=== PATIENT | female | born 1985 | race Caucasian/White ===

== ENCOUNTER 2022-08-29 08:22 | Emergency (ER) | payer OTHER, SELFPAY ==
--- NOTE | 2022-08-29 08:26 | ED.URI ---
HPI - URI/Sore Throat General Chief Complaint: Upper Respiratory Infection Stated Complaint: Sore Throat Time Seen by Provider: 08/29/22 08:46 Source: patient and RN notes reviewed Mode of arrival: ambulatory Limitations: no limitations History of Present Illness HPI Narrative: 37-year-old female presents with concern for sore throat, stuffy nose, dry cough. She reports symptoms started yesterday. She reports feeling of swollen lymph nodes and difficulty swallowing. She reports diarrhea yesterday. She denies sick contacts MD elicited complaint: sore throat Related Data Home Medications Medication Instructions Recorded Confirmed citalopram 20 mg tablet 20 mg PO DAILY 08/29/22 08/29/22 levothyroxine 50 mcg tablet 50 mcg PO EVERY OTHER DAY 08/29/22 08/29/22 (Unithroid) Allergies Allergy/AdvReac Type Severity Reaction Status Date / Time amoxicillin AdvReac Intermediate Gastrointestinal Verified 08/29/22 08:50 Upset wheat AdvReac Intermediate Gastrointestinal Verified 08/29/22 08:51 Upset Review of Systems Review of Systems: CONSTITUTIONAL: Denies malaise, chills, sweats, or fever. EYES: Denies visual changes, redness, or discharge. ENT: Reports rhinorrhea, sinus pain, otalgia. Reports stuffy nose and sore throat. CARDIOVASCULAR: Denies chest pain, palpitations, or edema. RESPIRATORY: Reports dry cough. Denies dyspnea. GASTROINTESTINAL: Denies abdominal pain, nausea, vomiting. Reports diarrhea SKIN: Denies rash or itching. MUSCULOSKELETAL: Denies myalgia. NEUROLOGIC: Denies headache. All systems reviewed & are unremarkable except as noted in HPI and below PMFSH Past Medical History Medical History (Updated 08/29/22 @ 08:58 by Ana M De Santiago NP) Acne Anxiety Celiac disease Depression Hypothyroidism Moderate left ankle sprain Vitamin B12 deficiency Surgical History Surgical History (Updated 05/02/22 @ 09:18 by Chelsie Woods PA-C) History of tonsillectomy Family History Family History Father Cerebrovascular accident Grandparent Family history of malignant neoplasm of breast Family history of type 2 diabetes mellitus Other Diabetes mellitus Family history of cardiovascular disease Hypertension Social History Social History (Updated 05/02/22 @ 09:09 by Cindi Putnam MA) Smoking status: Never smoker Alcohol intake: current Alcohol use details: social Substance use: never Gender identity (if verbalized by the patient): Female Comments At time of signature, agree with nursing past medical, surgical, social and family history. There is no relevant family history pertinent to the presenting complaint Exam Narrative: GENERAL: Well-appearing, well-nourished, and in no acute distress. HEAD: Normocephalic EYES: PERRLA, conjunctivae clear ENT: Nares clear. Mucous membranes moist. TM pearly patel with dull light reflex bilaterally; no tragal tenderness. Oropharynx erythematous without lesions. Tonsils not enlarged and without exudate, no drooling, no hoarseness, no trismus, uvula midline. NECK: Supple. No lymphadenopathy CHEST: Clear to auscultation, breath sounds equal. No wheezing, rhonchi, rales, or stridor. No respiratory distress, speaks in full sentences. HEART: Regular rate and rhythm. No murmur heard. SKIN: Warm, dry, no rash. NEURO: Alert and oriented x3. PSYCH: Normal mood and affect Course Course Emergency Course: Patient is aware of diagnosis, understands and agrees to treatment plan. Anticipatory guidance given. Patient agrees to follow-up as directed and is aware of reasons to seek care at the emergency department. Portions of this record may have been created with voice recognition software Level of Care: Express Care Visit Vital Signs Vital signs: Reviewed. MDM - URI/Sore Throat MDM Narrative Medical decision making narrative: Differential diagnosis considered: Winkler virus, st
[2022-08-29 08:38] VITALS: BP 143/86; PULSE 94; RESP 16; TEMP 36.3; O2SAT 100
== END 2022-08-29 09:00 | disposition home or self-care (01) ==
PROVIDERS: Emergency Provider Nurse Practitioner; PCP Physician Assistant Medical
DX: J02.0 Streptococcal pharyngitis (principal); E03.9 Hypothyroidism, unspecified; F41.9 Anxiety disorder, unspecified; F32.A Depression, unspecified; K90.0 Celiac disease
CPT/HCPCS: 87880; 99213; G0463

== ENCOUNTER 2022-08-31 17:27 | Emergency (ER) | payer OTHER, SELFPAY ==
[2022-08-31 17:39] VITALS: BP 144/91; PULSE 76; RESP 18; TEMP 36.5; O2SAT 99
--- NOTE | 2022-08-31 18:10 | ED.URI ---
HPI - URI/Sore Throat General Chief Complaint: Upper Respiratory Infection Stated Complaint: sorethroat Time Seen by Provider: 08/31/22 18:05 History of Present Illness HPI Narrative: 37-year-old female presented for complaint of sore throat, after diagnosis of strep pharyngitis 2 days ago. She was prescribed cefdinir but states her symptoms are worsening. Endorses swollen painful lymph nodes and difficulty swallowing due to the pain. She denies lip, throat or tongue swelling, wheezing or shortness of breath. She denies fevers or chills. She endorses mild sinus congestion. She is taking Tylenol and ibuprofen for pain. She states she cannot tolerate amoxicillin due to GI upset, and states azithromycin is like eating candy and does nothing Related Data Home Medications Medication Instructions Recorded Confirmed citalopram 20 mg tablet 20 mg PO DAILY 08/29/22 08/31/22 levothyroxine 50 mcg tablet 50 mcg PO EVERY OTHER DAY 08/29/22 08/31/22 (Unithroid) Allergies Allergy/AdvReac Type Severity Reaction Status Date / Time amoxicillin AdvReac Intermediate Gastrointestinal Verified 08/31/22 17:47 Upset wheat AdvReac Intermediate Gastrointestinal Verified 08/31/22 17:47 Upset Review of Systems Review of Systems: per HPI [facility] Past Medical History Medical History Acne Anxiety Celiac disease Depression Hypothyroidism Moderate left ankle sprain Vitamin B12 deficiency Surgical History Surgical History History of tonsillectomy Family History Family History Father Cerebrovascular accident Grandparent Family history of malignant neoplasm of breast Family history of type 2 diabetes mellitus Other Diabetes mellitus Family history of cardiovascular disease Hypertension Social History Social History Smoking status: Never smoker Alcohol intake: current Alcohol use details: social Substance use: never Gender identity (if verbalized by the patient): Female Exam Narrative: GENERAL: Ill-appearing, no acute distress. EYES: conjunctivae clear ENT: Mucous membranes moist. TMs pearly patel with normal light reflex bilaterally; no tragal tenderness. Oropharynx erythematous with exudate. Tonsils absent. No drooling, no hoarseness, no trismus, uvula midline. No tripod positioning, hot potato voice, or soft palate swelling. NECK: Supple. Bilateral anterior cervical lymphadenopathy CHEST: Clear to auscultation, breath sounds equal. HEART: Regular rate and rhythm. No murmur heard. SKIN: Warm, dry, no rash. NEURO: Alert and oriented x3. Course Course Emergency Course: Patient is aware of diagnosis, understands and agrees to treatment plan. Anticipatory guidance given. Patient agrees to follow-up as directed and is aware of reasons to seek care at the emergency department. Portions of this record may have been created with voice recognition software Level of Care: Express Care Visit Vital Signs Vital signs: Vital Signs Temperature 97.7 F 08/31/22 17:39 Pulse Rate 76 08/31/22 17:39 Respiratory Rate 18 08/31/22 17:39 Blood Pressure 144/91 H 08/31/22 17:39 Pulse Oximetry 99 08/31/22 17:39 Oxygen Delivery Room Air 08/31/22 17:39 Temperature 97.7 F 08/31/22 17:39 Pulse Rate 76 08/31/22 17:39 Respiratory Rate 18 08/31/22 17:39 Blood Pressure 144/91 H 08/31/22 17:39 Pulse Oximetry 99 08/31/22 17:39 Oxygen Delivery Room Air 08/31/22 17:39 MDM - URI/Sore Throat MDM Narrative Medical decision making narrative: Will change antibiotics, discussed amox is first choice but she declines due to GI symptoms. Advise supportive treatments. Patient is appropriate for outpatient treatment and follow-up. Differential
== END 2022-08-31 18:21 | disposition home or self-care (01) ==
PROVIDERS: Emergency Provider Nurse Practitioner Family; PCP Physician Assistant Medical
DX: J02.9 Acute pharyngitis, unspecified (principal); F41.9 Anxiety disorder, unspecified; K90.0 Celiac disease; F32.A Depression, unspecified; E03.9 Hypothyroidism, unspecified
CPT/HCPCS: 99213; G0463

== ENCOUNTER 2024-01-16 15:24 | Outpatient (CLI) | payer OTHER, SELFPAY ==
--- NOTE | ~2024-01-16 | MM_ITS ---
EXAMINATION: MM screening kalli BI w carmen HISTORY: Screening TECHNIQUE: Craniocaudal and mediolateral oblique 3-D tomosynthesis images were obtained and synthetic 2-D images were generated. CAD analysis was submitted and interpreted. COMPARISON: No prior mammogram is available for comparison at this institution. BREAST PARENCHYMAL COMPOSITION: There are scattered areas of fibroglandular density. FINDINGS: There is no evidence of suspicious mass, calcification, or architectural distortion to sugg est malignancy in either breast. There has been no suspicious interval change. IMPRESSION: 1. No mammographic evidence of malignancy. 2. Recommend routine screening mammography in one year. Reviewed, dictated and finalized at location A.
== END 2024-01-16 15:25 ==
LOC: MICIMG 15:24
PROVIDERS: PCP Obstetrics & Gynecology Gynecologic Oncology; Visit Provider Obstetrics & Gynecology Gynecologic Oncology
DX: Z12.31 Encounter for screening mammogram for malignant neoplasm of breast (principal)
CPT/HCPCS: 77063; 77067

== ENCOUNTER 2024-01-30 06:19 | Day surgery (SDC) | payer OTHER, SELFPAY ==
[2024-01-15 14:26] VITALS: BMI 37.0
[2024-01-21 13:09] VITALS: BMI 36.6
[2024-01-30 07:04] VITALS: BMI 36.1
--- NOTE | 2024-01-30 07:13 | WPDHPUPDATE1 ---
History and Physical Update Update Date/Time: 01/30/24 07:13 History and Physical has been reviewed, including an updated exam of the patient. There are NO changes in the patient's condition. Risks, benefits, and alternatives have been discussed and questions answered. Patient agrees to proceed with procedure.
[2024-01-30] MEDS: LACTATED RINGERS 1,000 ML 150 ML IV CONT (07:36)
--- NOTE | 2024-01-30 07:39 | WPDANESEPPF ---
Anes - Initial Pre Proc Eval Procedure: Operation Date: 01/30/24 08:00 Proposed Procedures p Esophagogastroduodenoscopy - Romero Waterman MD s Screening Colonoscopy - Romero Waterman MD Date/Time: 01/30/24 07:39 Surgeon: Romero Waterman MD Pre Op Diagnosis: Eosinophilic Esophagitis, Neoplasm Screening Patient Data Age: 39 Gender: F Height: 1.65 m Weight: 98.4 kg Allergies Allergy/AdvReac Type Severity Reaction Status Date / Time amoxicillin AdvReac Intermediate Gastrointestinal Verified 01/30/24 07:00 Upset wheat AdvReac Intermediate Gastrointestinal Verified 01/30/24 07:00 Upset Home Medications Medication Instructions Recorded Confirmed Type levonorgestrel 17.5 mcg/24 hr (up 1 device intrauterine ONCE 09/09/23 01/30/24 History to 5 yrs) 19.5mg intrauterine device (Kyleena) dicyclomine 10 mg capsule 10 mg PO QID #120 caps 01/14/24 01/30/24 Rx rifaximin 550 mg tablet (Xifaxan) 550 mg PO TID #42 tabs 01/14/24 01/30/24 Rx ascorbic acid (vitamin C) 500 mg 500 mg PO DAILY 01/22/24 01/30/24 History tablet biotin 10,000 mcg capsule 10,000 mcg PO DAILY 01/22/24 01/30/24 History cholecalciferol (vitamin D3) 25 25 mcg PO DAILY 01/22/24 01/30/24 History mcg (1,000 unit) tablet (Vitamin D3) mecobalamin (vitamin B12) 5,000 5,000 mcg PO DAILY 01/22/24 01/30/24 History mcg chewable tablet multivitamin with minerals-folic 1 tablet PO DAILY 01/22/24 01/30/24 History acid 0.4 mg tablet nystatin 100,000 unit/gram topical 1 applic topical WEEKLY 01/22/24 01/30/24 History powder Patient hx anesthesia problems: none Family hx anesthesia problems: none Results Review: All pre-operative results and documents have been reviewed as part of the pre-operative evaluation. [facility], [facility] Past Medical History Medical History Acne Acute pain of left shoulder Anxiety Bursitis of left shoulder Celiac disease Depression Dichorionic diamniotic twin in third trimester Encounter for care and examination of mother immediately after delivery Encounter for gynecological examination (general) (routine) with abnormal findings Encounter for routine follow-up Encounter for screening for malignant neoplasm of cervix Encounter for supervision of normal first , second trimester Encounter for supervision of normal first , third trimester Encounter for supervision of normal , unspecified, first trimester First trimester bleeding Gestational hypertension w/o significant proteinuria in 3rd trimester Hypothyroidism Irregular menstruation, unspecified Migraine headache Moderate left ankle sprain Pelvic pain in female anxiety depression Right upper quadrant pain Supervision of high risk in first trimester Supervision of high risk in second trimester Supervision of high risk in third trimester Tendinitis of left rotator cuff Twin gestation with indeterminate number of placentas and number of amniotic sacs, antepartum Twin , dichorionic/diamniotic, second trimester Urinary tract infection in mother during second trimester of Uterine infection Vitamin B12 deficiency Surgical History Surgical History History of tonsillectomy Family History Family History Father Cerebrovascular accident Grandparent Family history of malignant neoplasm of breast Family history of type 2 diabetes mellitus Other Diabetes mellitus Family history of cardiovascular disease Hypertension Social History Social History Smoking status: Never smoker Alcohol intake: current Drinks per week: 8 Alcohol use details: social Substance use: never Substance use type: does not use
[2024-01-30 08:25] VITALS: BP 136/80; PULSE 72; RESP 14; O2SAT 100
[2024-01-30 08:35] VITALS: BP 120/85; PULSE 65; RESP 16; O2SAT 100
[2024-01-30 08:45] VITALS: BP 127/84; PULSE 65; RESP 20; O2SAT 100
--- NOTE | 2024-01-30 09:03 | WPDANESPN ---
Anes - Prog Note Post-Op Date/Time: 01/30/24 09:03 Cardiovascular status: normal Respiratory status: normal Airway patency: baseline Mental status: baseline Post-Op hydration status: normal Vital Signs: Last Vital Signs Pulse 65 01/30/24 08:45 Resp 20 01/30/24 08:45 BP 127/84 01/30/24 08:45 Pulse Ox 100 01/30/24 08:45 O2 Del Method Room Air 01/30/24 08:45 Pain Score (VAS): 0 I/O: Intake & Output 01/29/24 01/30/24 01/30/24 23:59 07:59 15:59 Intake Total 700 Balance 700 Patient Feedback: Patient satisfied with anesthetic care.
== END 2024-01-30 08:56 | disposition home or self-care (01) ==
PROVIDERS: PCP Physician Assistant Medical; Visit Provider Internal Medicine Gastroenterology
PROC: 0DJ08ZZ Inspection of Upper Intestinal Tract, Via Natural or Artificial Opening Endoscopic (ICD-10-PCS; CPT 43235; principal; 2024-01-30 08:00)
PROC: 0DJD8ZZ Inspection of Lower Intestinal Tract, Via Natural or Artificial Opening Endoscopic (ICD-10-PCS; CPT 45378; 2024-01-30 08:00)
DX: Z12.11 Encounter for screening for malignant neoplasm of colon (principal); R19.4 Change in bowel habit; K64.8 Other hemorrhoids; R11.0 Nausea
CPT/HCPCS: 45380; 43239

== ENCOUNTER 2024-01-30 10:48 | Outpatient (NON) | payer OTHER, SELFPAY | END 2024-01-30 10:49 | disposition home or self-care (01) | LOC: ANHLAB 01-31 10:51 | PROVIDERS: PCP Physician Assistant Medical; Visit Provider Internal Medicine Gastroenterology | DX: R10.9 Unspecified abdominal pain (principal) | CPT/HCPCS: 88305 ==

== ENCOUNTER 2025-02-16 16:53 | Emergency (ER) | payer OTHER, SELFPAY ==
[2025-02-16 16:58] VITALS: BP 114/80; PULSE 70; RESP 16; TEMP 36.5; O2SAT 99
--- NOTE | 2025-02-16 17:44 | ED_ITS ---
HPI - Ear Problem General Chief complaint: Ear Stated complaint: RT Ear Pain Time Seen by Provider: 02/16/25 17:25 Source: patient and RN notes reviewed Mode of arrival: ambulatory Limitations: no limitations History of Present Illness HPI Narrative: 40-year-old female presents Express Care complaining of right ear pain for approximately 9 days. Patient did a tele doc visit approximate diet days ago for her symptoms and was prescribed azithromycin. Patient stated did not help and she persistently has right ear pain. Patient also reports having right ear fullness. Patient denies any otorrhea, tinnitus, dizziness, nausea, vomiting, upper respiratory symptoms, cough, or any other symptoms. Patient does mention that her right jaw does click and pop at times. She denies grinding her teeth or any pain with movement of her jaw. Related Data Home Medications ?Medication ?Instructions ?Recorded ?Confirmed ?Last Taken ?Type levonorgestrel 17.5 mcg/24 hr (up 1 device intrauterine ONCE 09/09/23 02/28/24 Unknown History to 5 yrs) 19.5mg intrauterine device (Kyleena) ascorbic acid (vitamin C) 500 mg 500 mg PO DAILY 01/22/24 02/28/24 01/25/24 09:00 History tablet biotin 10,000 mcg capsule 10,000 mcg PO DAILY 01/22/24 02/28/24 01/25/24 09:00 History cholecalciferol (vitamin D3) 25 25 mcg PO DAILY 01/22/24 02/28/24 01/29/24 09:00 History mcg (1,000 unit) tablet (Vitamin D3) mecobalamin (vitamin B12) 5,000 5,000 mcg PO DAILY 01/22/24 02/28/24 01/25/24 09:00 History mcg chewable tablet multivitamin with minerals-folic 1 tablet PO DAILY 01/22/24 02/28/24 01/25/24 09:00 History acid 0.4 mg tablet nystatin 100,000 unit/gram topical 1 applic topical WEEKLY 01/22/24 02/28/24 01/26/24 09:00 History powder Allergies Allergy/AdvReac Type Severity Reaction Status Date / Time amoxicillin AdvReac Intermediate Gastrointestinal Verified 02/16/25 17:10 Upset wheat AdvReac Intermediate Gastrointestinal Verified 02/16/25 17:10 Upset Review of Systems Review of Systems: CONSTITUTIONAL: Denies fever, chills, or sweats. EYES: Denies visual changes, redness, or discharge. ENT: Denies rhinorrhea, congestion, sore throat,. Positive for otalgia and ear fullness, jaw popping. CARDIOVASCULAR: Denies chest pain, palpitations, or edema. RESPIRATORY: Denies cough or dyspnea. GASTROINTESTINAL: Denies abdominal pain, nausea, vomiting, or diarrhea. GENITOURINARY: Denies dysuria or hematuria. SKIN: Denies rash or itching. MUSCULOSKELETAL: Denies back pain, joint pain, or myalgia. NEUROLOGIC: Denies headache, numbness, or weakness. PSYCHIATRIC: Denies anxiety or depression. All other systems reviewed are negative, except as documented in HPI. [facility] Past Medical History Medical History Migraine headache Uterine infection Urinary tract infection in mother during second trimester of Twin , dichorionic/diamniotic, second trimester Twin gestation with indeterminate number of placentas and number of amniotic sacs, antepartum Tendinitis of left rotator cuff Supervision of high risk in third trimester Supervision of high risk in second trimester Supervision of high risk in first trimester Right upper quadrant pain depression anxiety Pelvic pain in female Irregular menstruation, unspecified Gestational hypertension w/o significant proteinuria in 3rd trimester First trimester bleeding Encounter for supervision of normal , unspecified, first trimester Encounter for screening for malignant neoplasm of cervix Encounter for routine follow-up Encounter for care and examination of mother immediately after delivery Encounter for supervision of normal first , third trimester Encounter for supervision of normal first , second trimester Encounter for gynecological examination (general) (routine) with abnormal findings Dichorionic diamniotic twin in third trimester Bursitis of left shoulder Acute pain of left shoulder Anxiety Acne Vitamin B12 deficiency Depression Celiac disease Hypothyroidism Moderate left ankle sprain Surgical History Surgical History History of tonsillectomy Family History Family History Father Cerebrovascular accident Grandparent Family history of malignant neoplasm of breast Family history of type 2 diabetes mellitus Other Diabetes mellitus Family history of cardiovascular disease Hypertension Social History Social History Smoking status: Never smoker Alcohol intake: current Drinks per week: 8 Alcohol use details: social Substance use: never Substance use type: does not use Lack of Transportation: No Lack of Food: Never True Current Housing: I Have Housing Concerned About Future Housing: No Difficulty Paying Gas/Electric Bills: No Difficulty Paying for Meds: No Currently Unemployed: No Difficulty w/ Childcare or Family Care: No Living arrangements: with family Occupation/Education: occupation Gender identity (if verbalized by the patient): Female Sexual Orientation (if Verbalized by the Patient): Straight or Heterosexual Spiritual care concerns: No Comments At the time of my signature, I reviewed and agree with the nursing past medical, surgical, social, and family history. There is no relevant family history pertinent to the patient complaint. Exam Narrative: GENERAL: This is a well-nourished, well-developed adult, in no apparent distress. They are non ill-appearing, nontoxic appearing. HEAD: normocephalic, atraumatic. EYES: Sclera clear/white. Conjunctiva normal. Vision is grossly intact. Extraocular movements intact EARS: External ears normal, no tragal tenderness, auditory canals clear and without drainage, TMs normal without perforation. Hearing grossly intact. No mastoid tenderness NOSE: External nose normal with no obvious nasal discharge, nasal turbinates wi thout redness, no rhinorrhea. THROAT/oropharynx: Mucous membranes moist, posterior pharynx clear, without erythema or swelling. Uvula midline. No trismus. Teeth intact. Dental decay. The gingivitis. Clicking felt and right TMJ with movement. Jaw movement is nontender. Tenderness to palpation near the right TMJ. NECK: Neck supple, non-tender without lymphadenopathy, masses or thyromegaly. CARDIOVASCULAR: Regular rate and rhythm without murmurs, gallops, or rubs. RESPIRATORY: Clear to auscultation. Breath sounds equal bilaterally. No wheezes, rales, or rhonchi. SKIN: warm, Dry, intact with no suspicious lesions or rash, good texture and turgor. NEURO: awake, alert, and oriented to person, place and time. There were no obvious focal neurologic abnormalities. EXTREMITIES: No joint tenderness, effusion, or edema noted. Course Course Emergency Course: Portions of this record may have been created with voice recognition software Level of Care: Express Care Visit Vital Signs Vital signs: Vital Signs Temperature 97.7 F 02/16/25 16:58 Pulse Rate 70 02/16/25 16:58 Respiratory Rate 16 02/16/25 16:58 Blood Pressure 114/80 02/16/25 16:58 Pulse Oximetry 99 02/16/25 16:58 Oxygen Delivery Room Air 02/16/25 16:58 Temperature 97.7 F 02/16/25 16:58 Pulse Rate 70 02/16/25 16:58 Respiratory Rate 16 02/16/25 16:58 Blood Pressure 114/80 02/16/25 16:58 Pulse Oximetry 99 02/16/25 16:58 Oxygen Delivery Room Air 02/16/25 16:58 Reviewed Medical Decision Making MDM Narrative Medical decision making narrative: No evidence infection to patient's ears. No tragal tenderness. Symptoms may be coming from patient's jaw. Will prescribe a short course of prednisone. No evidence of ear effusion. Will also recommend antihistamine and Flonase to help with any congestion symptoms. Discussed physical exam findings. Advised supportive measures and signs/symptoms to go to the ER. Pt is appropriate for outpt treatment and f/u. Differential Diagnosis Differential Diagnosis: Otitis media, otitis externa, TMJ disorder, jaw dysfunction Vital Signs Vital Signs: Vital Signs Temperature 97.7 F 02/16/25 16:58 Pulse Rate 70 02/16/25 16:58 Respiratory Rate 16 02/16/25 16:58 Blood Pressure 114/80 02/16/25 16:58 Pulse Oximetry 99 02/16/25 16:58 Oxygen Delivery Room Air 02/16/25 16:58 Temperature 97.7 F 02/16/25 16:58 Pulse Rate 70 02/16/25 16:58 Respiratory Rate 16 02/16/25 16:58 Blood Pressure 114/80 02/16/25 16:58 Pulse Oximetry 99 02/16/25 16:58 Oxygen Delivery Room Air 02/16/25 16:58 Critical Care Time Critical Care Time Critical Care Time: No Discharge Plan Discharge Clinical Impression: Ear pain, right Patient Disposition: Home Condition: Stable Instructions: Temporomandibular Disorder (ED), Earache (ED) Additional Instructions: There is No evidence of infection to her right ear. It may be possible ear pain is coming from her jaw. Take the prednisone as directed, taken in the morning take with food. You may try Flonase nasal spray and Zyrtec or Claritin help with allergy symptoms and congestion. Follow-up with PCP in 3-5 days. May take Tylenol or ibuprofen as needed for pain or fevers. If you developed any fevers, discharge, worsening pain, or any other concerns please go to the ER. Patient Language: Macanese Prescriptions: New prednisone 20 mg tablet 40 mg PO DAILY 5 Days Qty: 10 0RF No Action Kyleena 17.5 mcg/24 hrs (5 yrs) 19.5 mg intrauterine device 1 device intrauterine ONCE Rx Instructions: as a single dose dicyclomine 10 mg capsule 10 mg PO QID Qty: 120 3RF pantoprazole 40 mg tablet,delayed release (DR/EC) 40 mg PO BID Qty: 60 3RF nystatin 100,000 unit/gram powder 1 applic topical WEEKLY ascorbic acid (vitamin C) 500 mg Tablet 500 mg PO DAILY biotin 10,000 mcg Capsule 10,000 mcg PO DAILY cholecalciferol (vitamin D3) [Vitamin D3] 25 mcg (1,000 unit) Tablet 25 mcg PO DAILY multivit with min-folic acid [Adult One Daily Multivitamin] 0.4 mg Tablet 1 tablet PO DAILY mecobalamin (vitamin B12) 5,000 mcg Tablet,Chewable 5,000 mcg PO DAILY Follow-up/Referrals: Marjorie Goldman PA-C [Primary Care Provider] - Time of Disposition: 17:35
== END 2025-02-16 17:41 | disposition home or self-care (01) ==
PROVIDERS: PCP Physician Assistant Medical
DX: H92.01 Otalgia, right ear (principal); K90.0 Celiac disease; E03.9 Hypothyroidism, unspecified; E53.8 Deficiency of other specified B group vitamins
CPT/HCPCS: 99213; G0463